=== PATIENT | male | born 1960 | race Two or more races ===

== ENCOUNTER → 2022-02-06 | Outpatient (CLI) | payer BC ==
--- NOTE | 2022-02-07 09:14 | CA ---
Transthoracic Echo Report Name: Alfred Contreras Age: 61 Gender: M : 1960 Exam Date: 02/06/2022 11:24 Exam Location: [facility] Ht (in): 72 Wt (lb): 210 Ordering Physician: Jarad Blanton DO Attending/Referring Phys: Jarad Blanton DO Executive Staff Assistant Adriana Durán, RD Procedure CPT: Indications: R00.2 PALPITATIONS,I49.8 CARDIAC ARRHYTHMIAS Cardiac Hx: Technical Quality: Contrast 1: Total Dose (mL): Contrast 2: Total Dose (mL): MEASUREMENTS (Male / Female) Normal Values 2D ECHO LV Diastolic Diameter PLAX 4.5 cm 4.2 - 5.9 / 3.9 - 5.3 cm LV Systolic Diameter PLAX 3.9 cm IVS Diastolic Thickness 1.3 cm 0.6 - 1.0 / 0.6 - 0.9 cm LVPW Diastolic Thickness 1.1 cm 0.6 - 1.0 / 0.6 - 0.9 cm LV Relative Wall Thickness 0.5 RV Internal Dim ED PLAX 3.0 cm LA Volume 66.1 cm??? 18 - 58 / 22 - 52 cm??? M-MODE Aortic Root Diameter MM 4.2 cm MV E Point Septal Separation 1.0 cm AV Cusp Separation MM 2.1 cm DOPPLER MV Area PHT 3.1 cm??? Mitral E Point Velocity 78.2 cm/s Mitral A Point Velocity 64.9 cm/s Mitral E to A Ratio 1.2 MV Deceleration Time 247.3 ms MV E' Velocity 7.4 cm/s Mitral E to MV E' Ratio 10.5 FINDINGS Left Ventricle Left ventricular ejection fraction is estimated at 50-55 %. Mildly increased left ventricular wall thickness. Right Ventricle Normal right ventricular size and function. Right Atrium Normal right atrial size. Left Atrium Mildly increased left atrial volume. Mitral Valve Structurally normal mitral valve. Mild mitral regurgitation. Aortic Valve Trileaflet aortic valve. Tricuspid Valve Structurally normal tricuspid valve. Pulmonic Valve Structurally normal pulmonic valve. Pericardium Normal pericardium. Aorta Normal size aortic root and proximal ascending aorta. CONCLUSIONS Normal left ventricular dimension and systolic function Previewed by: Dr. Aren Maradiaga MD (Electronically Signed) Final Date: 07 February 2022 09:13
== END | disposition home or self-care (01) ==
LOC: RADECHMAIN 11:18
PROVIDERS: ATTEND Family Medicine
DX: R00.2 Palpitations (principal); I49.8 Other specified cardiac arrhythmias
CPT/HCPCS: 93306

== ENCOUNTER 2024-01-18 10:12 | Day surgery (SDC) | payer OTHER ==
[2024-01-18] MEDS: IV FLUID CONTINUATION 1,000 ML IV ONE (11:38)
[2024-01-18] MEDS: LACTATED RINGERS 1,000 ML IV SCH (11:40)
[2024-01-18 11:46] VITALS: TEMP 97
[2024-01-18] MEDS ORDERED: PROPOFOL 10 MG/ML 20 ML VIAL IV ONE (13:05)
--- NOTE | 2024-01-18 13:05 | P.OP ---
Date of Procedure: 01/18/24 Preoperative Diagnosis: Screening colonoscopy Postoperative Diagnosis: Diverticulosis Procedure(s) Performed: Colonoscopy Anesthesia: MAC Surgeon: Jose David Romo Pathology: none sent Condition: stable Disposition: PACU Description of Procedure: The patient was placed on the endoscopy table in the lateral position. He received IV sedation. Digital rectal exam was performed. This revealed no abnormalities. Flexible colonoscope was then placed patient anus passed throughout the entire colon. The ileocecal valve was visualized. The cecum, ascending and transverse colon appeared normal. The descending and sigmoid colon had extensive diverticular changes. The scope was brought back the rectum and this appeared normal. Scope withdrawn for the patient.
--- NOTE | 2024-01-18 13:06 | P.GSHP ---
History of Present Illness H&P Date: 01/18/24 Chief Complaint: Screening colonoscopy This a 63-year-old male presents today for screening colonoscopy. Patient denies any significant GI complaints. Past Medical History Past Medical History: Hypertension Additional Past Medical History / Comment(s): covid May 2021 History of Any Multi-Drug Resistant Organisms: None Reported Past Surgical History: Hernia Repair, Tonsillectomy Additional Past Surgical History / Comment(s): Colonoscopy. Past Anesthesia/Blood Transfusion Reactions: No Reported Reaction Smoking Status: Never smoker - Past Family History Mother Family Medical History: Cancer Additional Family Medical History / Comment(s): breast Father Family Medical History: Cancer Additional Family Medical History / Comment(s): Skin, gallbladder, prostate Medications and Allergies Home Medications Medication Instructions Recorded Confirmed Type Losartan/Hydrochlorothiazide 1 tab PO DAILY 12/29/21 01/18/24 History [Losartan-Hctz 100-25 mg Tab] Allergies Allergy/AdvReac Type Severity Reaction Status Date / Time No Known Allergies Allergy Verified 01/18/24 11:44 Surgical - Exam Vital Signs Temp Pulse Resp BP Pulse Ox 97 F L 60 18 175/91 95 01/18/24 11:44 01/18/24 11:44 01/18/24 11:44 01/18/24 11:44 01/18/24 11:44 - General well developed, well nourished, no distress - Eyes PERRL - ENT normal pinna - Neck no masses - Respiratory normal expansion - Cardiovascular Rhythm: regular - Abdomen Abdomen: soft, non tender Assessment and Plan Assessment: Perform screening colonoscopy
[2024-01-18 13:39] VITALS: BP 114/76; PULSE 60; RESP 15
== END 2024-01-18 14:18 | disposition home or self-care (01) ==
LOC: ORWHC2ENDO 10:12
PROVIDERS: ATTEND Surgery
DX: Z12.11 Encounter for screening for malignant neoplasm of colon (principal); K57.30 Diverticulosis of large intestine without perforation or abscess without bleeding; I10 Essential (primary) hypertension; Z79.899 Other long term (current) drug therapy
CPT/HCPCS: 45378